=== PATIENT | female | born 1955 | race Caucasian/White ===

== ENCOUNTER 2020-10-19 11:05 | Outpatient (CLI) | payer MEDICARE, SELFPAY ==
[2020-10-19 11:15] LABS: Basophils Absolute Auto 0.03 K/mm3 (0.00-0.10); Basophils Percent Auto 0.3 % (0.0-1.0); Eosinophils Absolute Auto 0.09 K/mm3 (0.02-0.50); Eosinophils Percent Auto 0.8 % (1.0-6.0); Hematocrit 42.8 % (35.0-42.0); Hemoglobin 14.8 g/dL (11.7-13.8); Immature Granulocyte Absolute 0.05 K/mm3 (0.00-0.00); Immature Granulocyte Percent A 0.4 % (0.0-0.0); Lymphocytes Percent Auto 24.1 % (18.0-42.0); Mean Corpuscular HGB Conc 34.6 g/dL (32.0-36.0); Mean Corpuscular Volume 92.4 fL (78.0-102.0); Mean Platelet Volume 10.2 fl (9.2-11.8); Monocytes Absolute Auto 0.74 K/mm3 (0.10-0.90); Monocytes Percent Auto 6.6 % (2.0-11.0); Neutrophils Absolute Auto 7.6 K/mm3 (1.7-7.2); Neutrophils Percent Auto 67.8 % (50.0-70.0); Platelet Count Result 319 K/mm3 (150-420); Red Blood Count 4.63 M/mm3 (4.20-5.40); Red Cell Distribution Width 11.8 % (11.6-14.4); White Blood Count 11.2 K/mm3 (4.8-10.8)
[2020-10-19 12:28] LABS: Alanine Aminotransferase 34 U/L (14-59); Albumin Level 4.5 g/dL (3.4-5.0); Alkaline Phosphatase 124 U/L (46-116); Anion Gap 9 mmol/L (8-16); Aspartate Amino Transferase 23 U/L (15-37); Bilirubin,Total 2.4 mg/dL (0.00-1.00); Blood Urea Nitrogen 13 mg/dL (7-18); Calcium 9.9 mg/dL (8.5-10.1); Carbon Dioxide 32 mmol/L (21-32); Chloride 99 mmol/L (98-108); Cholesterol 175 mg/dL (0-200); Estimated Glomerular Filt Rate > 60; Glucose 90 mg/dL (70-99); HDL Direct 60 mg/dL (40-60); LDL Cholesterol Calculated 84 mg/dL (<130); Osmolality Calculated 290 mOsm/kg (285-295); Potassium 3.9 mmol/L (3.5-5.1); Sodium 140 mmol/L (136-145); Total Protein 7.4 g/dL (6.4-8.2); Triglycerides 155 mg/dL (0-150)
== END 2020-10-19 11:06 | disposition home or self-care (01) ==
LOC: CHSLAB 11:08
PROVIDERS: PCP Nurse Practitioner Family; Visit Provider Nurse Practitioner Family
DX: E78.5 Hyperlipidemia, unspecified (principal); I10 Essential (primary) hypertension
CPT/HCPCS: 36415; 80053; 80061; 85025

== ENCOUNTER 2021-11-14 11:47 | Outpatient (CLI) | payer MEDICARE, SELFPAY ==
[2021-11-14 12:04] LABS: Basophils Absolute Auto 0.04 K/mm3 (0.00-0.10); Basophils Percent Auto 0.4 % (0.0-1.0); Eosinophils Absolute Auto 0.06 K/mm3 (0.02-0.50); Eosinophils Percent Auto 0.6 % (1.0-6.0); Hematocrit 43.2 % (35.0-42.0); Hemoglobin 14.7 g/dL (11.7-13.8); Immature Granulocyte Absolute 0.04 K/mm3 (0.00-0.00); Immature Granulocyte Percent A 0.4 % (0.0-0.0); Lymphocytes Absolute Auto 2.62 K/mm3 (1.10-4.50); Lymphocytes Percent Auto 25.7 % (18.0-42.0); Mean Corpuscular Hemoglobin 31.8 pg (27.0-31.0); Mean Corpuscular Volume 93.5 fL (78.0-102.0); Mean Platelet Volume 10.6 fl (9.2-11.8); Monocytes Absolute Auto 0.52 K/mm3 (0.10-0.90); Monocytes Percent Auto 5.1 % (2.0-11.0); Neutrophils Absolute Auto 6.9 K/mm3 (1.7-7.2); Neutrophils Percent Auto 67.8 % (50.0-70.0); Platelet Count Result 289 K/mm3 (150-420); Red Blood Count 4.62 M/mm3 (4.20-5.40); Red Cell Distribution Width 12.1 % (11.6-14.4); White Blood Count 10.2 K/mm3 (4.8-10.8)
[2021-11-14 13:10] LABS: Alanine Aminotransferase 24 U/L (14-59); Albumin Level 4.5 g/dL (3.4-5.0); Alkaline Phosphatase 114 U/L (46-116); Anion Gap 8 mmol/L (8-16); Aspartate Amino Transferase 18 U/L (15-37); Bilirubin,Total 1.7 mg/dL (0.00-1.00); Blood Urea Nitrogen 10 mg/dL (7-18); Calcium 9.8 mg/dL (8.5-10.1); Carbon Dioxide 31 mmol/L (21-32); Chloride 97 mmol/L (98-108); Cholesterol 155 mg/dL (0-200); Estimated Glomerular Filt Rate > 60; Glucose 91 mg/dL (70-99); HDL Direct 72 mg/dL (40-60); LDL Cholesterol Calculated 56 mg/dL (<130); Osmolality Calculated 281 mOsm/kg (285-295); Potassium 3.8 mmol/L (3.5-5.1); Sodium 136 mmol/L (136-145); Total Protein 7.2 g/dL (6.4-8.2); Triglycerides 133 mg/dL (0-150)
== END 2021-11-14 11:48 | disposition home or self-care (01) ==
LOC: CHSLAB 11:50
PROVIDERS: PCP Nurse Practitioner Family; Visit Provider Nurse Practitioner Family
DX: E78.5 Hyperlipidemia, unspecified (principal); I10 Essential (primary) hypertension
CPT/HCPCS: 36415; 80053; 80061; 85025

== ENCOUNTER 2023-10-11 11:25 | Outpatient (CLI) | payer MEDICARE, SELFPAY ==
[2023-10-11 11:37] LABS: Basophils Absolute Auto 0.05 K/mm3 (0.00-0.10); Basophils Percent Auto 0.4 % (0.0-1.0); Eosinophils Absolute Auto 0.07 K/mm3 (0.02-0.50); Eosinophils Percent Auto 0.6 % (1.0-6.0); Hematocrit 43.1 % (35.0-42.0); Hemoglobin 14.6 g/dL (11.7-13.8); Immature Granulocyte Absolute 0.06 K/mm3 (0.00-0.00); Immature Granulocyte Percent A 0.5 % (0.0-0.0); Lymphocytes Absolute Auto 3.01 K/mm3 (1.10-4.50); Lymphocytes Percent Auto 26.3 % (18.0-42.0); Mean Corpuscular HGB Conc 33.9 g/dL (32.0-36.0); Mean Corpuscular Hemoglobin 31.2 pg (27.0-31.0); Mean Corpuscular Volume 92.1 fL (78.0-102.0); Mean Platelet Volume 9.9 fl (9.2-11.8); Monocytes Absolute Auto 0.49 K/mm3 (0.10-0.90); Monocytes Percent Auto 4.3 % (2.0-11.0); Neutrophils Absolute Auto 7.8 K/mm3 (1.7-7.2); Neutrophils Percent Auto 67.9 % (50.0-70.0); Platelet Count Result 318 K/mm3 (150-420); Red Blood Count 4.68 M/mm3 (4.20-5.40); White Blood Count 11.4 K/mm3 (4.8-10.8)
[2023-10-11 12:40] LABS: Alanine Aminotransferase 29 U/L (14-59); Albumin Level 4.1 g/dL (3.4-5.0); Alkaline Phosphatase 106 U/L (46-116); Anion Gap 9 mmol/L (8-16); Aspartate Amino Transferase 23 U/L (15-37); Bilirubin,Total 1.8 mg/dL (0.00-1.00); Blood Urea Nitrogen 7 mg/dL (7-18); Calcium 9.7 mg/dL (8.5-10.1); Carbon Dioxide 31 mmol/L (21-32); Chloride 98 mmol/L (98-108); Cholesterol 260 mg/dL (0-200); Estimated Glomerular Filt Rate > 60; Glucose 98 mg/dL (70-99); HDL Direct 63 mg/dL (40-60); LDL Cholesterol Calculated 158 mg/dL (<130); Osmolality Calculated 284 mOsm/kg (285-295); Potassium 4.3 mmol/L (3.5-5.1); Sodium 138 mmol/L (136-145); Total Protein 7.1 g/dL (6.4-8.2); Triglycerides 194 mg/dL (0-150)
== END 2023-10-11 11:26 | disposition home or self-care (01) ==
LOC: CHSLAB 11:28
PROVIDERS: PCP Nurse Practitioner Family; Visit Provider Nurse Practitioner Family
DX: Z13.6 Encounter for screening for cardiovascular disorders (principal); E78.5 Hyperlipidemia, unspecified; I10 Essential (primary) hypertension
CPT/HCPCS: 36415; 80053; 80061; 85025

== ENCOUNTER 2023-11-27 08:12 | Outpatient (CLI) | payer MEDICARE, SELFPAY ==
--- NOTE | ~2023-11-27 | DEXA_ITS ---
? Bone Density Report? Name:? WHITNEY HUFFMAN Patient ID:??? [id number] Age:? 68 Sex:? Female Ethnicity:? White Date of : 1955 Indication: postmenopausal; screening for osteoporosis; hysterectomy; Referring Provider: Rachael Patel Study: Bone densitometry was performed. Exam Date: November 27, 2023 Accession number: Bone Density: Region? BMD??? T-score? Z-score?? Classification AP Spine(L1-L4)? 0.816?? -2.1? -0.1? Osteopenia Femoral Neck (Left)? 0.682?? -1.5? 0.2? Osteopenia Total Hip (Left)? 0.812?? -1.1? 0.3? Osteopenia Femoral Neck (Right)? 0.707?? -1.3? 0.4? Osteopenia Total Hip (Right)? 0.809?? -1.1? 0.3? Osteopenia Femoral Neck Mean? 0.694?? -1.4? 0.3? Osteopenia Total Hip Mean? 0.810?? -1.1? 0.3? Osteopenia World Health Organization criteria for BMD impression classify patients as: Normal (T-score at or above -1.0), Osteopenia (T-score between -1.0 and -2.5), or Osteoporosis (T-score at or below -2.5). 10-year Fracture Risk(1): Major Osteoporotic Fracture? 9.5% Hip Fracture? 2.1% Reported Risk Factors: [place] (), Neck BMD=0.682, BMI=23.0, smoking (1) FRAX? Version 3.08. Fracture probability calculated for an untreated patient. Fracture probability may be lower if the patient has received treatment. Clinical Information Provided by Patient: Smokes Has used the following medications: Vitamin D Has the following medical conditions: Hysterectomy Patient maximum height was 65.0 Menopause Age: 48 No regular weight bearing exercise Does not regularly consume dairy products Drinks caffeinated beverages Onset of menses at age 12 Number of children 3 Impression: The patient has low bone mass, based on the Total Spine T-score. The patient has risk factors, including: smoking. Discussion: BONE DENSITY IS LOW AT ONE OR MORE SKELETAL SITES. This patient's lowest T-score is low at one or more skeletal sites.? It meets the World Health Organization's (WHO) criteria for ?low bone mass?? (T-score between -1.0 and -2.5).? The patient's 10-year risk of fracture as calculated by FRAX is less than the threshold where pharmacological therapy is recommended by the National Osteoporosis Foundation (NOF).? However, all treatment decisions require clinical judgment and consideration of individual patient factors, including patient preferences, comorbidities, previous drug use, risk factors not captured in the FRAX model (e.g., frailty, falls, vitamin D deficiency, increased bone turnover, interval significant decline in bone density) and possible under or overestimation of fracture risk by FRAX. The patient should follow a healthful lifestyle (good nutrition with adequate calcium and vitamin D, and appropriate weight-bearing exercise). Follow-Up: Consider repeating this study in 2 to 3 years to reassess this patient's status, or sooner if there is some new clinical indica
== END 2023-11-27 08:13 | disposition home or self-care (01) ==
LOC: CHSIMG 08:14
PROVIDERS: PCP Nurse Practitioner Family; Visit Provider Nurse Practitioner Family
DX: Z78.0 Asymptomatic menopausal state (principal); M85.89 Other specified disorders of bone density and structure, multiple sites
CPT/HCPCS: 77080

== ENCOUNTER 2024-10-15 11:02 | Outpatient (CLI) | payer MEDICARE, SELFPAY ==
--- OUTSIDE RECORDS SUMMARY | 2024-10-15 11:09 | XMS_ITS | Patient Health Summary ---
Author Organization [facility] Address [address] [place] [address] Care Team Providers Care Bone Plant Supervisor Name Role Phone Antonino Petersen MD Primary Care Provider [phone] Note from [facility],non-owned Affiliates and Associated Physician Practices is amultiple site organization consisting of ambulatory clinics and hospital sitesin [place], [place], [place] and [place]. This disclosure is being madepursuant to the Care Everywhere program and may not contain all information available regarding this patient. Last updated 18.[facility] Allergies * Erythromycin * Sulfa Drugs(Rash) -Medium Criticality Medications * Be aware that medications may not be up to date on this document. Alwaysverify current medications with the patient. * aspirin (ASPIRIN) 325 MG tablet Take 325 mg by mouth once daily * Vitamin D3 (CHOLECALCIFEROL) 2000 UNITS capsule Take 2,000 Units by mouth once daily * quinapril 5 MG TABS 10 mg, hydroCHLOROthiazide 25 MG TABS 12.5 mg Take by mouth once daily * atenolol (TENORMIN) 50 MG tablet Take 50 mg by mouth once daily * exemestane (AROMASIN) 25 MG tablet Take 25 mg by mouth once daily * atorvastatin (LIPITOR) 10 MG tablet Take 10 mg by mouth at bedtime * predniSONE (DELTASONE) 10 MG tablet(Started 01/11/2017) 5 tabs PO x 1 day, 4 tabs PO x 1 day, 3 tabs PO x 1 day, 2 tabs PO x 1 day, 1 tab PO x 1 day Social History Tobacco Use Types Packs/Day Years Used Date Smoking Tobacco: Every Day Smokeless Tobacco: Never Sex and Gender Information Value Date Recorded Sex Assigned at Not on file Gender Identity Not on file Sexual Orientation Not on file Last Filed Vital Signs Vital Sign Reading Time Taken Comments Blood Pressure 166/90 12/04/2018 12:47 PM CDT Pulse 61 12/04/2018 12:47 PM CDT Temperature 36.7 C (98 F) 12/04/2018 12:47 PM CDT Respiratory Rate 16 12/04/2018 12:47 PM CDT Oxygen Saturation 98% 12/04/2018 12:47 PM CDT Inhaled Oxygen Concentration - - Weight 62.1 kg (137 lb) 12/04/2018 12:47 PM CDT Height 165.1 cm (5' 5 ) 12/04/2018 12:47 PM CDT Body Mass Index 22.8 12/04/2018 12:47 PM CDT Care Teams Bone Plant Supervisor Relationship Specialty Start Date End Date Antonino Petersen MD [address] [place] [address] PCP - General Family Medicine 01/11/17
--- OUTSIDE RECORDS SUMMARY | 2024-10-15 11:09 | XMS_ITS | Referral Summary ---
Author Organization [facility] Address [address] [place] [address] Care Team Providers Care Consulting Hr Professional Name Role Phone Antonino Petersen MD Primary Care Provider [phone] Source Comments [facility],non-owned Affiliates and Associated Physician Practices is amultiple site organization consisting of ambulatory clinics and hospital sitesin [place], [place], [place] and [place]. This disclosure is being madepursuant to the Care Everywhere program and may not contain all information available regarding this patient. Last updated 18.[facility] Allergies Active Allergy Reactions Criticality Noted Date Comments Erythromycin 01/11/2017 Sulfa Drugs Rash Medium 12/04/2018 Medications * Be aware that medications may not be up to date on this document. Alwaysverify current medications with the patient. Medication Sig Dispensed Refills Start Date End Date Status aspirin (ASPIRIN) 325 MG tablet Take 325 mg by mouth once daily Active Vitamin D3 (CHOLECALCIFEROL) 2000 UNITS capsule Take 2,000 Units by mouth once daily Active quinapril 5 MG TABS 10 mg, hydroCHLOROthiazide 25 MG TABS 12.5 mg Take by mouth once daily Active atenolol (TENORMIN) 50 MG tablet Take 50 mg by mouth once daily Active exemestane (AROMASIN) 25 MG tablet Take 25 mg by mouth once daily Active atorvastatin (LIPITOR) 10 MG tablet Take 10 mg by mouth at bedtime Active predniSONE (DELTASONE) 10 MG tablet 5 tabs PO x 1 day, 4 tabs PO x 1 day, 3 tabs PO x 1 day, 2 tabs PO x 1 day, 1 tab PO x 1 day 15 Tab 01/11/2017 Active Additional Information Patient not taking.Reported on 12/04/2018 Social History Tobacco Use Types Packs/Day Years [...] Mass Index 22.8 12/04/2018 12:47 PM CDT Plan of Treatment Not on file Care Teams Consulting Hr Professional Relationship Specialty Start Date End Date Antonino Petersen MD [address] [place] [address] PCP - General Family Medicine 01/11/17
--- OUTSIDE RECORDS SUMMARY | 2024-10-15 11:09 | XMS_ITS | Clinical Summary ---
Author Organization [facility] Address [address] [place] [address] Phone Care Team Providers Care Business Development Consultant Name Role Phone [facility], External Provider Primary Care Provider U navailable Allergies Active Allergy Reactions Criticality Noted Date Comments Erythromycin Rash Low 10/24/2013 Sulfa (Sulfonamide Antibiotics) Rash High 03/28 Medications aspirin buffered (BUFFERIN) 325 mg tabletIndication s:Breast cancer screening, high risk patient,Atypical hyperplasia of breast Take 1 Tab by mouth daily. Active ergocalciferol (VITAMIN D2) 50,000 unit capsule Take 1 Cap by mouth every 7 days. 12 Cap 0 5 Active Additional Information Patient taking differently: 2,000 UnitsOralDAILY, Reported on 03/16/2022 atorvastatin (LIPITOR) 10 mg tablet Take 20 mg by mouth late in the day. Active atenolol (TENORMIN) 50 mg tabletIndication s:Atypical hyperplasia of breast,Breast cancer screening, high risk patient,Family history of malignant neoplasm of breast TK 1 T PO QD 3 7 Active quinapril-hydroC HLOROthiazide (ACCURETIC) 20-12.5 mg TabletIndication s:Atypical hyperplasia of breast,Breast cancer screening, high risk patient,Family history of malignant neoplasm of breast TK 2 TS PO QD 1 7 Active aspirin (ZARIA CHEWABLE) 81 mg Tablet, Chewable Take 81 mg by mouth daily. Active amLODIPine (NORVASC) 5 mg tablet Take 5 mg by mouth daily. Active lisinopril-hydro CHLOROthiazide (ZESTORETIC) 20-12.5 mg tablet Take 2 Tablets by mouth daily. Active Active Problems Patient Care Coordination No te Formatting of this note migh t be different from the original. 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 Breast cancer screening, high risk patient 12/09 Family history of malignant neoplasm of breast 0 12/01/2013 HTN (hypertension) Resolved Problems Problem Noted Date Diagnosed Date Resolved Date Fibrocystic disease of breas t, proliferative type with atypia 12/01/2013 12/09/2013 Inflammatory disease of breast 12/01/2013 12/09/2013 Mammographic microcalcification 10/21/2013 12/09/2013 Encounters Date Type Department Care Team Description 09/17/2024 External Device Data [facility] ABSTRACTION Provider, Abstract 09/17/2024 External Device Data [facility] ABSTRACTION Provider, Abstract 09/10/2024 External Device Data [facility] ABSTRACTION Provider, Abstract from Last 3 Months Family History Medical History Relation Name Comments Breast Cancer Maternal Aunt Breast Cancer Mother Yudi Breast Cancer Other 1 MGAunt Breast Cancer Other 2 Niece Triple (-); BR CA (-) Ovarian Cancer Neg Hx Relation Name Status Comments Maternal Aunt Mother Yudi Other 1 MGAunt Other 2 Niece Alive Social History Tobacco Use Types Packs/Day Years Used Date Smoking Tobacco: Former Cigarettes Smokeless Tobacco: Never Tobacco Cessation:Counseling Given: Not Answered Comments:Quit 8-10 wks ago Alcohol Use Standard Drinks/Week Comments Yes 0.8 (1 standard drink = 0.6 oz p ure alcohol) rare - wine Feeling Safe Answer Date Recorded Fear of Current or Ex-Partner Not on file Emotionally Abused Not on file 04/30/2024 Within the last year, have y ou been kicked, hit, slapped, or otherwise physically hurt by your partner or ex-partner? No 04/30/2024 Sexually Abused Not on file 04/30/2024 Comments No Sex and Gender Information Value Date Recorded Sex Assigned at Not on file Legal Sex Female 8:19 AM FLAME CUTTER Gender Identity Not on file Sexual Orientation Not on file Occupation Industry Job Start Date Job End Date Not on file Not on file Not on file Not on file Last Filed Vital Signs Vital Sign Reading Time Taken Comments Blood Pressure 136/72 04/30/2024 9:37 AM CDT Pulse 55 03/16/2022 8:19 AM CDT Temperature 36.6 C (97.9 F) 08/30/2020 11:19 AM FLAME CUTTER Respiratory Rate 16 04/19/2017 11:00 AM CDT Oxygen Saturation 98% 08/30/2020 11:19 AM FLAME CUTTER Inhaled Oxygen Concentration - - Weight 62.1 kg (137 lb) 04/30/2024 9:37 AM CDT Height 165.1 cm (5' 5 ) 04/30/2024 9:37 AM CDT Body Mass Index 22.8 04/30/2024 9:37 AM CDT Plan of Treatment Upcoming Encounters Date Type Department Care Team (Late st Contact Info) Description 05/01/2025 9:30 AM CDT Appointment [facility] [address] [place] [address] Jovita Bill, LEATHA [address] [place] [id number] 05/01/2025 10:30 AM CDT Office Visit [facility] [address] [place] [address] [place] [address] Jovita Bill, LEATHA [address] [place] [address] Health Maintenance Due Date Last Done Comments DTAP/TDAP/TD VACCINES (1 - Tdap) 1974 COLORECTAL SCREENING 2000 Colorectal Cancer Screening 2000 FIT-DNA Q 3 years 2000 FIT/FOBT Q 1 year 2000 Flex Sig/CT Colonography Q 5 years 2000 PNEUMOCOCCAL VACCINE 65+ YEA RS (1 of 1 - PCV) 2005 ZOSTER VACCINE (1 of 2) 2005 INFLUENZA VACCINE (#1) 2024 BREAST CANCER SCREENING 04/30/2025 04/30/20 24, 03/22/2023, 03/16/2022, Additional history exists RSV VACCINE (60+ or ) (1 - 1-dose 75+ series) 2030 OSTEOPOROSIS SCREENING Completed 9, 11/06/2016, 01/26/2014 Procedures Procedure Name Priority Date/Time Associated Diagnosis Comments MAMMO 3D LEIF SCREEN BILAT W OR WO CAD Routine 04/30/2024 9:26 AM CDT Family history of malignant neoplasm of breast Atypical hyperplasia of breast Visit for screening mammogram XR DEXA BONE DENSITY AXIAL 1 OR MORE SITES Routine 11/18/2018 10:23 AM CDT Osteoporosis screening Post-menopausal from Last 3 Months or Most Recently Relevant to Health Maintenance Results * MAMMO SCRN BILAT 3D LEIF W OR WO CAD (04/30/2024 9:26 AM CDT) Anatomical Region Laterality Modality Breast Bilateral Mammography 04/30/2024 9:27 AM CDT Impressions 04/30/2024 9:42 AM CDT IMPRESSION: No mammographic evidence of malignancy in the bilateral breasts. Routine screening mammography is recommended in one year. OVERALL FINAL ASSESSMENT: BI-RADS CATEGORY 2 - Benign findings DICTATION LOCATION: [facility] 04/30/2024 9:42 AM CDT EXAMINATION: BILATERAL SCREENING DIGITAL MAMMOGRAPHY WITH TOMOSYNTHESIS AND CAD DATE: 04/30/2024 9:26 AM HISTORY: Routine screening mammography. History of a benign right breast core needle biopsy and benign left breast surgical excisional biopsy. COMPARISON: Mammography with dates ranging from 03/22/2023 to 11/01/2015. TECHNIQUE: A bilateral screening mammogram was performed. Low-dose full-field digital breast tomosynthesis examination was performed with 2D and 3D acquisitions. Examination is read in conjunction with computer aided detection. BREAST COMPOSITION: There are scattered areas of fibroglandular density. FINDINGS: There is a biopsy clip in the right breast. There are stable post-operative findings in the left breast. There are no suspicious masses, suspicious calcifications, or other suspicious findings in either breast. There has been no suspicious interval change. Computer aided detection was used in the interpretation of this examination. Procedure Note Demarcus Lakhani MD - 04/30/2024 EXAMINATION: BILATERAL SCREENING DIGITAL MAMMOGRAPHY WITH TOMOSYNTHESIS AND CAD DATE: 04/30/2024 9:26 AM HISTORY: Routine screening mammography. History of a benign right breast core needle biopsy and benign left breast surgical excisional biopsy. COMPARISON: Mammography with dates ranging from 03/22/2023 to 11/01/2015. TECHNIQUE: A bilateral screening mammogram was performed. Low-dose full-field digital breast tomosynthesis examination was performed with 2D and 3D acquisitions. Examination is read in conjunction with computer aided detection. BREAST COMPOSITION: There are scattered areas of fibroglandular density. FINDINGS: There is a biopsy clip in the right breast. There are stable post-operative findings in the left breast. There are no suspicious masses, suspicious calcifications, or other suspicious findings in either breast. There has been no suspicious interval change. Computer aided detection was used in the interpretation of this examination. IMPRESSION: No mammographic evidence of malignancy in the bilateral breasts. Routine screening mammography is recommended in one year. OVERALL FINAL ASSESSMENT: BI-RADS CATEGORY 2 - Benign findings DICTATION LOCATION: [facility] us Nelsy Santiago MD MAMMO ORDERABLES Final Result * XR DEXA BONE DENSITY AXIAL 1 OR MORE SITES (11/18/2018 10:23 AM CDT) Anatomical Region Laterality Modality Computed Radiogr aphy 11/18/2018 10:2 3 AM CDT Impressions 11/18/2018 10:43 AM CDT IMPRESSION: This is a summary page. Please refer to the complete detailed report found in the Imaging Section of the [facility] EMR. Osteopenic BMD. Comments: None. Statistical change: No significant decrease in BMD since the prior exam. A statistically significant change is defined as a change of greater than 2.5 standard deviations in the least significant difference from the prior study. Least significant differences are defined as follows: Lumbar spine: +/- 0.010 g/cm2 Femoral neck: +/- 0.014 g/cm2 Forearm radius 33%: +/- 0.020 g/cm2 FRAX FRACTURE RISK ASSESSMENT: Risk factors: Current smoker. 10 Year Probability Of Fracture Major Osteoporotic: 8.1 % Hip: 1.2 % Comparison population: [place], Race: A major osteoporotic fracture is defined as a fracture of the spine, forearm, hip or shoulder. Definitions: Normal: T-score above -1.0 Osteopenia T-score less than -1.0 and above -2.5 Osteoporosis: T-score <= -2.5 Follow-up Recommendations: Patients without high risk factors for osteoporosis T-score -1.0 to -1.5 - Consider repeat BMD in 5-10 years T-score -1.5 to - 2.0 - Consider repeat BMD in 3-5 years T-score -2.0 to - 2.5 - Consider repeat BMD every 2 years Patients on treatment for osteoporosis 1-2 years after initiation of treatment and every 2 years thereafter DICTATION LOCATION: Location 1 - [facility] 11/18/2018 10:43 AM CDT EXAMINATION: BONE DENSITY STUDY (DXA) DATE: 11/18/2018 10:23 AM HISTORY: 63 years Female. Post-menopausal symptoms. PROCEDURE: Planar images of the lumbar spine and hip(s) using a [employer] DEXA scanner for bone mineral density determination (BMD). Prior bone density: 11/06/2016 FINDINGS: Lumbar Spine (L1-L4): 1.039 g/sq cm T-Score: -1.2 Prior: 1.089 g/sq cm Left Femoral Neck: 0.841 g/sq cm T-Score: -1.4 Prior: 0.851 g/sq cm Left Total Femur: T-Score: -0.8 Right Femoral Neck: 0.86 g/sq cm T-Score: -1.3 Prior: 0.83 g/sq cm Right Total Femur: T-Score: -0.4 Procedure Note Rob Camp MD - 11/18/2018 EXAMINATION: BONE DENSITY STUDY (DXA) DATE: 11/18/2018 10:23 AM HISTORY: 63 years Female. Post-menopausal symptoms. PROCEDURE: Planar images of the lumbar spine and hip(s) using a [employer] DEXA scanner for bone mineral density determination (BMD). Prior bone density: 11/06/2016 FINDINGS: Lumbar Spine (L1-L4): 1.039 g/sq cm T-Score: -1.2 Prior: 1.089 g/sq cm Left Femoral Neck: 0.841 g/sq cm T-Score: -1.4 Prior: 0.851 g/sq cm Left Total Femur: T-Score: -0.8 Right Femoral Neck: 0.86 g/sq cm T-Score: -1.3 Prior: 0.83 g/sq cm Right Total Femur: T-Score: -0.4 IMPRESSION: This is a summary page. Please refer to the complete detailed report found in the Imaging Section of the [facility] EMR. Osteopenic BMD. Comments: None. Statistical change: No significant decrease in BMD since the prior exam. A statistically significant change is defined as a change of greater than 2.5 standard deviations in the least significant difference from the prior study. Least significant differences are defined as follows: Lumbar spine: +/- 0.010 g/cm2 Femoral neck: +/- 0.014 g/cm2 Forearm radius 33%: +/- 0.020 g/cm2 FRAX FRACTURE RISK ASSESSMENT: Risk factors: Current smoker. 10 Year Probability Of Fracture Major Osteoporotic: 8.1 % Hip: 1.2 % Comparison population: [place], Race: A major osteoporotic fracture is defined as a fracture of the spine, forearm, hip or shoulder. Definitions: Normal: T-score above -1.0 Osteopenia T-score less than -1.0 and above -2.5 Osteoporosis: T-score <= -2.5 Follow-up Recommendations: Patients without high risk factors for osteoporosis T-score -1.0 to -1.5 - Consider repeat BMD in 5-10 years T-score -1.5 to - 2.0 - Consider repeat BMD in 3-5 years T-score -2.0 to - 2.5 - Consider repeat BMD every 2 years Patients on treatment for osteoporosis 1-2 years after initiation of treatment and every 2 years thereafter DICTATION LOCATION: Location 1 - [facility] Chuckie Marquez MD DIAGNOSTIC IMAGING ORDERABLES Final Result from Last 3 Months or Most Recently Relevant to Health Maintenance Insurance [facility] [id number] Advance Directives For more information, please contact: [phone] * Full Code (Latest Code Status on File) Date Activated Date Inactivated Comments 11/20/2013 8:07 AM 11/20/2013 1:49 PM * Full Code Date Activated Date Inactivated Comments 11/20/2013 7:51 AM 11/20/2013 8:07 AM Care Teams Business Development Consultant Relationship Specialty Start Date End Date [facility], External Provider [address] [place] [address] PCP - General 02/24/20
--- OUTSIDE RECORDS SUMMARY | 2024-10-15 11:09 | XMS_ITS | Referral Summary ---
Author Organization [facility] Address [address] [place] [address] Phone Care Team Providers Care Multifocal Lens Inspector Name Role Phone Landry Downey NP Primary Care Provi geoffrey Chuckie Marquez MD Unavailable [phone] Serenity Fried MD Unavailable [phone] Encounters Date Type Department Care Team Description 10/02/2024 Telephone [facility] Accountable Care Organization [address] [place] [address] Raquel Putnam MA Unsuccessful Phone Call 1 ([facility] AWV) from Last 3 Months Allergies Active Allergy Reactions Criticality Noted Date Comments Erythromycin Rash Medium 01/11/2017 Sulfa (Sulfonamide Antibiotics) Rash Medium 08/27 Medications exemestane (AROMASIN) 25 mg tablet 09/05/2017 Active cholecalciferol (VITAMIN D-3) 2,000 unit capsule Take 2,000 Units by mouth. Active atenolol (TENORMIN) 50 mg tablet TAKE 1 TABLET BY MOUTH EVERY DAY 30 tablet 11 10/09/2017 Active aspirin 81 mg chewable tablet Take 1 tablet (81 mg total) by mouth daily. 30 tablet 11 01/30/2018 Active atorvastatin (LIPITOR) 10 mg tablet TAKE 1 TABLET BY MOUTH EVERY DAY 90 tablet 2 06/03/2018 Active amLODIPine (NORVASC) 5 mg tablet TAKE 1 TABLET BY MOUTH EVERY DAY 90 tablet 1 08/01/2018 Active quinapril-hydro chlorothiazide (ACCURETIC) 20-12.5 mg per tablet TAKE 2 TABLETS BY MOUTH EVERY DAY 180 tablet 03/31/2019 Active Active Problems Problem Noted Date Diagnosed Date Osteopenia 01/30/2018 Hypertension 09/10/2017 Assessment & Plan (09/10/2017 9:37 AM NEWS CAMERA PERSON): Hypertension is well controlled. . Continue current treatment regimen. Dietary sodium restriction. Regular aerobic exercise. Blood pressure will be reassessed at the next regular appointment. Hyperlipidemia 09/10/2017 Assessment & Plan (09/10/2017 9:38 AM NEWS CAMERA PERSON): Lipid abnormalities are controlled in past with statin. . Pharmacotherapy as ordered. Lipids will be reassessed in 3 months. Vitamin D deficiency 09/10/2017 Assessment & Plan (09/10/2017 9:38 AM NEWS CAMERA PERSON): Plan to check Vitamin D level. Abnormal cells in breast 09/10/2017 Assessment & Plan (09/10/2017 9:40 AM NEWS CAMERA PERSON): Currently following at [facility]. Alternating every 6 months with MRI vs mammogram. Currently on aromasin. Resolved Problems Problem Noted Date Diagnosed Date Resolved Date BMI 22.0-22.9, adult 09/10/2017 06/01/26 018 Assessment & Plan (09/10/2017 9:41 AM NEWS CAMERA PERSON): BMI normal. Weight has been stable. Aware of importance of healthy proper caloric intake. 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 Not on file Not on file Last Filed Vital Signs Vital Sign Reading Time Taken Comments Blood Pressure 160/110 01/30/2018 4:09 PM CDT Pulse 62 01/30/2018 4:09 PM CDT Temperature 36.9 C (98.5 F) 01/30/2018 4:09 PM CDT Respiratory Rate - - Oxygen Saturation 100% 01/30/2018 4:09 PM CDT Inhaled Oxygen Concentration - - Weight 63.2 kg (139 lb 6.4 oz) 01/30/2018 4:09 P M CDT Height 162.6 cm (5' 4 ) 01/30/2018 4:09 PM CDT Body Mass Index 23.93 01/30/2018 4:09 PM CDT Plan of Treatment Not on file Insurance [employer] ACCESS Care Teams Multifocal Lens Inspector Relationship Specialty Start Date End Date Landry Downey NP PCP - General Family Practice 01/30/18 Chuckie Marquez MD Referring Physician Hematology 01/30/18 [place] [address] [address] Consulting Physician General Surgery 01/30/18
--- OUTSIDE RECORDS SUMMARY | 2024-10-15 11:09 | XMS_ITS | Clinical Summary ---
Author Organization [facility] Address [facility] [place] [address] Care Team Providers Care Gusset Ripper Name Role Phone Antonino Petersen MD Primary Care Provider [phone] Source Comments [facility],non-owned Affiliates and Associated Physician Practices is amultiple site organization consisting of ambulatory clinics and hospital sitesin [place], [place], [place] and [place]. This disclosure is being madepursuant to the Care Everywhere program and may not contain all information available regarding this patient. Last updated 18.[facility] Allergies Active Allergy Reactions Criticality Noted Date [...] Additional Information Patient not taking.Reported on 12/04/2018 Family History Medical History Relation Name Comments Hypertension Father Hypertension Mother Relation Name Status Comments Father Mother Social History Tobacco Use Types Packs/Day Years [...] 12/04/2018 12:47 PM CDT Plan of Treatment Health Maintenance Due Date Last Done Comments BONE DENSITY TESTING 1955 COLOGUARD (AGES 45-75) - COL ON CA SCREENING 1955 COLON MONITORING 1955 COLONOSCOPY - COLON CA SCREENING 1955 CT COLONOGRAPHY - COLON CA SCREENING 1955 Colorectal Cancer Screening 1955 FIT - COLON CA SCREENING 1955 FLEX SIG - COLON CA SCREENING 1955 MAMMOGRAM 1955 HEPATITIS C SCREENING 07/13/1973 DTAP/TDAP/TD VACCINES (1 - Tdap) 1974 PNEUMOCOCCAL VACCINE 50+ (1 of 2 - PCV) 1974 ZOSTER VACCINE (1 of 2) 2005 COVID-19 VACCINE ( - 2023-2 5 season) 2024 INFLUENZA VACCINE (#1) 2024 DEPRESSION SCREENING 08/27/2024 Respiratory Syncytial Virus (RSV) Vaccine Pt: or over 60 yrs (1 - 1-dose 75+ series) 2030 HEPATITIS B VACCINE Aged Out No longe r eligible based on patient's age to complete this topic HIB VACCINE Aged Out No longer eligi ble based on patient's age to complete this topic HPV VACCINE Aged Out No longer eligi ble based on patient's age to complete this topic MENINGOCOCCAL (Group B) VACCINE Aged Out No longer eligible based on patient's age to complete this topic MENINGOCOCCAL VACCINE Aged Out No sam luiza eligible based on patient's age to complete this topic Care Teams Gusset Ripper Relationship Specialty Start Date End Date Antonino Petersen MD [address] [place] [address] PCP - General Family Medicine 01/11/17
--- OUTSIDE RECORDS SUMMARY | 2024-10-15 11:09 | XMS_ITS | Clinical Summary ---
Author Organization [facility] Address [address] [place] [address] Phone Care Team Providers Care Human Resources Clerk Name Role Phone Nasreen Landry García NP Primary Care Provi geoffrey Chuckie Marquez MD Unavailable Serenity Fried MD Unavailable [phone] Allergies Active Allergy Reactions Criticality Noted Date [...] 09/10/2017 Assessment & Plan (09/10/2017 9:37 AM SEALING MACHINE OPERATOR): Hypertension is well controlled. . Continue current treatment regimen. Dietary sodium restriction. Regular aerobic exercise. Blood pressure will be reassessed at the next regular appointment. Hyperlipidemia 09/10/2017 Assessment & Plan (09/10/2017 9:38 AM SEALING MACHINE OPERATOR): Lipid abnormalities are controlled in past with statin. . Pharmacotherapy as ordered. Lipids will be reassessed in 3 months. Vitamin D deficiency 09/10/2017 Assessment & Plan (09/10/2017 9:38 AM SEALING MACHINE OPERATOR): Plan to check Vitamin D level. Abnormal cells in breast 09/10/2017 Assessment & Plan (09/10/2017 9:40 AM SEALING MACHINE OPERATOR): Currently following at [facility]. Alternating every 6 months with MRI vs mammogram. Currently on aromasin. Resolved Problems Problem Noted Date Diagnosed Date Resolved Date BMI 22.0-22.9, adult 09/10/2017 06/06/ 018 Assessment & Plan (09/10/2017 9:41 AM SEALING MACHINE OPERATOR): BMI normal. Weight has been stable. Aware of importance of healthy proper caloric intake. Encounters Date Type Department Care Team Description 10/02/2024 Telephone [facility] Accountable Care Organization [address] [place], [place] [id number] Raquel Putnam MA Unsuccessful Phone Call 1 ([facility] AWV) from Last 3 Months Surgical History Surgery Date Site/Laterality Comments HYSTERECTOMY 08/27/2013 - 08/26/2014 Dysfunctional uterine bleeding. BREAST SURGERY 08/27/2013 - 08/26/2014 Left Atypical cells removed. On Estrogen Modulator Exemestane. Gets imaging done every 6 months. Medical History Medical History Date Comments Hypertension Hyperlipidemia Vitamin D deficiency Shingles Family History Medical History Relation Name Comments Cancer Father Emphysema Father Heart failure Father Hypertension Father Cancer Mother Hypertension Mother Diabetes Sister Meghana Relation Name Status Comments Father Mother Sister Meghana Alive Social History Tobacco Use Types Packs/Day [...] file Not on file Not on file Obstetrics History Para Term AB IAB SAB Ectopic Multiple Livin g Live Births 3 3 3 3 3 Date Outcome GA Total Labor Labor/2nd/3rd Weight Sex Type Anes PTL Daphne A1 A5 Name Clin Term 4.309 kg (9 lb 8 oz) M Vag-S pont Living Complications:Other (Comment ) Term 3.742 kg (8 lb 4 oz) F Vag-S pont Living Term 4.451 kg (9 lb 13 oz) M Vag-S pont None Living Comments First oldest child pt was pu t under an anesthetic called twlight that put her to sleep. Last Filed Vital Signs Vital Sign Reading [...] Plan of Treatment Not on file Insurance ZAHIRA PREFERRED ZARINAEM ACCESS Care Teams Human Resources Clerk Relationship Specialty Start Date End Date Landry Downey NP PCP - General Family Practice 01/30/18 Chuckie Marquez MD Referring Physician Hematology 01/30/18 [place] [address] [place] [address] Consulting Physician General Surgery 01/30/18
--- OUTSIDE RECORDS SUMMARY | 2024-10-15 11:09 | XMS_ITS | Encounter Summary ---
Author Organization [facility] Address [address] [place] [address] Care Team Providers Care Dimension Mill Worker Name Role Phone [facility], External Provider Primary Care Provider U navailable Reason for Visit * Reason Comments Medication Refill Encounter Details Date Type Department Care Team (Late st Contact Info) Description 07/17/2014 Refill [facility] Dami Leahy [address] [place] [address] Chuckie Marquez MD [address] [place] [address] Social History Tobacco Use Types Packs/Day Years Used Date Smoking Tobacco: Former Cigarettes Smokeless Tobacco: Never Comments:Quit 8-10 wks ago Alcohol Use Standard Drinks/Week Comments Yes 0.8 (1 standard drink = 0.6 oz p ure alcohol) rare - wine Comments No Sex and Gender Information Value Date Recorded Sex Assigned at Not on file Legal Sex Female 8:19 AM VETERINARY NURSE Gender Identity Not on file Sexual Orientation Not on file Occupation Industry Job Start Date Job End Date Not on file Not on file Not on file Not on file documented as of this encounter Miscellaneous Notes * Telephone Encounter - Shannan Brown RN - 07/17/2014 9:14 AM CST SCRIPT REFILLED for Aromasin RINARY NURSE documented in this encounter Plan of Treatment Upcoming Encounters Date Type Department Care Team (Late st Contact Info) Description 05/01/2025 9:30 AM CDT Appointment [facility] [address] [place] [address] Jovita Bill, LEATHA [address] [place] [address] 05/01/2025 10:30 AM CDT Office Visit [facility] Breast Surgery Damiadam Leahy [address] [place] [address] Jovita Bill, LEATHA [address] [place] [address] documented as of this encounter Visit Diagnoses Not on filedocumented in this encounter Care Teams Dimension Mill Worker Relationship Specialty Start Date End Date [facility], External Provider [address] [place] [address] PCP - General 02/24/20 documented as of this encounter
[2024-10-15 11:14] LABS: Basophils Absolute Auto 0.04 K/mm3 (0.00-0.10); Basophils Percent Auto 0.4 % (0.0-1.0); Eosinophils Absolute Auto 0.06 K/mm3 (0.02-0.50); Eosinophils Percent Auto 0.6 % (1.0-6.0); Hematocrit 43.7 % (35.0-42.0); Hemoglobin 14.6 g/dL (11.7-13.8); Immature Granulocyte Absolute 0.04 K/mm3 (0.00-0.00); Immature Granulocyte Percent A 0.4 % (0.0-0.0); Lymphocytes Absolute Auto 2.81 K/mm3 (1.10-4.50); Lymphocytes Percent Auto 27.2 % (18.0-42.0); Mean Corpuscular HGB Conc 33.4 g/dL (32-36); Mean Corpuscular Hemoglobin 30.7 pg (27.0-31.0); Mean Corpuscular Volume 91.8 fL (78.0-102.0); Mean Platelet Volume 10.4 fl (9.2-11.8); Monocytes Absolute Auto 0.53 K/mm3 (0.10-0.90); Monocytes Percent Auto 5.1 % (2.0-11.0); Neutrophils Absolute Auto 6.86 K/mm3 (1.70-7.20); Neutrophils Percent Auto 66.3 % (50.0-70.0); Platelet Count Result 302 K/mm3 (150-420); Red Blood Count 4.76 M/mm3 (4.20-5.40); Red Cell Distribution Width 11.9 % (11.6-14.4); White Blood Count 10.3 K/mm3 (4.8-10.8)
[2024-10-15 11:42] LABS: Alanine Aminotransferase 30 U/L (14-59); Albumin Level 4.4 g/dL (3.4-5.0); Alkaline Phosphatase 122 U/L (46-116); Anion Gap 8 mmol/L (4-12); Aspartate Amino Transferase 20 U/L (15-37); Bilirubin,Total 2.7 mg/dL (0.00-1.00); Blood Urea Nitrogen 9 mg/dL (7-18); Carbon Dioxide 32 mmol/L (21-32); Chloride 98 mmol/L (98-108); Cholesterol 155 mg/dL (0-200); Estimated Glomerular Filt Rate > 60; Glucose 103 mg/dL (70-99); HDL Direct 67 mg/dL (40-60); LDL Cholesterol Calculated 62 mg/dL (<130); Osmolality Calculated 284 mOsm/kg (285-295); Potassium 3.7 mmol/L (3.5-5.1); Sodium 138 mmol/L (136-145); Total Protein 7.4 g/dL (6.4-8.2); Triglycerides 128 mg/dL (0-150)
[2024-10-17 03:28] LABS: Vitamin D 25 Hydroxy 72 ng/mL (30-100)
== END 2024-10-15 11:03 | disposition home or self-care (01) ==
LOC: CHSLAB 11:04
PROVIDERS: PCP Nurse Practitioner Family; Visit Provider Nurse Practitioner Family
DX: Z13.6 Encounter for screening for cardiovascular disorders (principal); E78.5 Hyperlipidemia, unspecified; I10 Essential (primary) hypertension; Z79.899 Other long term (current) drug therapy
CPT/HCPCS: 36415; 80053; 80061; 82306; 85025

== ENCOUNTER 2024-11-13 16:20 | Outpatient (NON) | payer MEDICARE, SELFPAY ==
--- OUTSIDE RECORDS SUMMARY | 2024-11-13 16:24 | XMS_ITS | Clinical Summary ---
Author Organization [facility] [address] Address [address] [place] [address] Phone Care Team Providers Care Seal Mixing Operator Name Role Phone [facility], External Provider Primary Care Provider U navailable [...] tablet Take 2 Tablets by mouth daily. 4 Active Active Problems Patient Care Coordination No te Formatting of this note migh t be different from the original. Primary Care: Antonino Petersen MD Referring Provider: Carola Benavidez MD [address] [facility] [address] [place] [address] Other: Problem Noted Date Diagnosed Date Atypical [...] Encounters Date Type Department Care Team Description 11/12/2024 External Device Data STL ABSTRACTION Provider, Abstract 11/01/2024 External Device Data STL ABSTRACTION Provider, Abstract 10/31/2024 External Device Data [facility] ABSTRACTION Provider, Abstract 10/29/2024 External Device Data [facility]L ABSTRACTION Provider, Abstract 10/28/2024 External Device Data [facility] ABSTRACTION Provider, Abstract 10/14/2024 External Device Data STL ABSTRACTION Provider, Abstract [...] on file Legal Sex Female 8:19 AM PILLOWCASE CUTTER Gender Identity Not on file Sexual Orientation Not on file Occupation Industry Job Start Date Job End Date Not on file Not on file Not on file Not on file Last Filed Vital Signs Vital Sign Reading Time Taken Comments Blood Pressure 136/72 04/30/2024 9:37 AM CDT Pulse 55 03/16/2022 8:19 AM CDT Temperature 36.6 C (97.9 F) 08/30/2020 11:19 AM PILLOWCASE CUTTER Respiratory Rate 16 04/19/2017 11:00 AM CDT Oxygen Saturation 98% 08/30/2020 11:19 AM PILLOWCASE CUTTER Inhaled Oxygen Concentration - - Weight 62.1 kg (137 lb) 04/30/2024 9:37 AM CDT Height 165.1 cm (5' 5 ) 04/30/2024 9:37 AM CDT Body Mass Index 22.8 04/30/2024 9:37 AM CDT Plan of Treatment Upcoming Encounters Date Type Department Care Team (Late st Contact Info) Description 05/01/2025 9:30 AM CDT Appointment [facility] Dami Leah[address] [place] [address] Jovita Bill FNP [address] [place] [address] 05/01/2025 10:30 AM CDT Office Visit [facility] Breast Surgery Dami Armond [address] [place] [address] Jovita Bill, LEATHA [address] [place] [address] Health Maintenance Due Date Last Done Comments DTAP/TDAP/TD VACCINES (1 - Tdap) 1974 COLORECTAL SCREENING 2000 Colorectal Cancer Screening 2000 FIT-DNA Q 3 years 2000 FIT/FOBT Q 1 year 2000 Flex Sig/CT Colonography Q 5 years 2000 PNEUMOCOCCAL VACCINE 50+ YEA RS (1 of 1 - PCV) [...] - Benign findings DICTATION LOCATION: [facility] Narrative 04/30/2024 9:42 AM CDT EXAMINATION: BILATERAL SCREENING [...] CATEGORY 2 - Benign findings DICTATION LOCATION: [facility] Nelsy Santiago MD MAMMO ORDERABLES Final Result * XR DEXA BONE DENSITY AXIAL 1 OR MORE SITES (11/18/2018 10:23 AM CDT) Anatomical Region Laterality Modality Computed Radiogr aphy 11/18/2018 10:2 3 AM CDT Impressions 11/18/2018 10:43 AM CDT IMPRESSION: This is a summary page. Please refer to the complete detailed report found in the Imaging Section of the [facility] EMR. Osteopenic BMD. Comments: None. Statistical [...] years thereafter DICTATION LOCATION: Location 1 - [facility] Narrative 11/18/2018 10:43 AM CDT EXAMINATION: BONE DENSITY STUDY (DXA) DATE: 11/18/2018 10:23 AM HISTORY: 63 years Female. Post-menopausal symptoms. PROCEDURE: Planar images of the lumbar spine and hip(s) using a iPipeline DEXA scanner for bone mineral density determination [...] the lumbar spine and hip(s) using a iPipeline DEXA scanner for bone mineral density determination [...] found in the Imaging Section of the [employer] EMR. Osteopenic BMD. Comments: None. Statistical change: [...] years thereafter DICTATION LOCATION: Location 1 - [facility] Chuckie Vernon Marquez MD DIAGNOSTIC IMAGING ORDERABLES Final Result from Last 3 Months or Most Recently Relevant to Health Maintenance Insurance [facility] [address] [address] Advance Directives For more information, please contact: [phone] * Full Code (Latest Code Status on File) Date Activated Date Inactivated Comments 11/20/2013 8:07 AM 11/20/2013 1:49 PM * Full Code Date Activated Date Inactivated Comments 11/20/2013 7:51 AM 11/20/2013 8:07 AM Care Teams Seal Mixing Operator Relationship Specialty Start Date End Date [facility], External [place] [address] [place] [address] PCP - General 02/24/20
--- OUTSIDE RECORDS SUMMARY | 2024-11-13 16:24 | XMS_ITS | Clinical Summary ---
Author Organization [facility] Address [address] [place] [address] Phone Care Team Providers Care Back Facer Name Role Phone Nasreen Landry García NP Primary Care Provi geoffrey Chuckie Marquez MD Unavailable Serenity Fried MD Unavailable [phone] Allergies Active Allergy Reactions Criticality Noted [...] 09/10/2017 Assessment & Plan (09/10/2017 9:37 AM CORRECTIONAL FACILITY NURSE): Hypertension is well controlled. . Continue current treatment regimen. Dietary sodium restriction. Regular aerobic exercise. Blood pressure will be reassessed at the next regular appointment. Hyperlipidemia 09/10/2017 Assessment & Plan (09/10/2017 9:38 AM CORRECTIONAL FACILITY NURSE): Lipid abnormalities are controlled in past with statin. . Pharmacotherapy as ordered. Lipids will be reassessed in 3 months. Vitamin D deficiency 09/10/2017 Assessment & Plan (09/10/2017 9:38 AM CORRECTIONAL FACILITY NURSE): Plan to check Vitamin D level. Abnormal cells in breast 09/10/2017 Assessment & Plan (09/10/2017 9:40 AM CORRECTIONAL FACILITY NURSE): Currently following at [facility]. Alternating every 6 months with MRI vs mammogram. Currently on aromasin. Resolved Problems Problem Noted Date Diagnosed Date Resolved Date BMI 22.0-22.9, adult 09/10/2017 06/06/ 018 Assessment & Plan (09/10/2017 9:41 AM CORRECTIONAL FACILITY NURSE): BMI normal. Weight has been stable. Aware of importance of healthy proper caloric intake. Encounters Date Type Department Care Team Description 10/02/2024 Telephone [facility] Accountable Care Organization [address] [place], [place] [id number] Raquel Putnam MA Unsuccessful Phone Call 1 ([facility]) from Last 3 Months Surgical History [...] Insurance ZAHIRA PREFERRED ZARINAEM ACCESS Care Teams Back Facer Relationship Specialty Start Date End Date Landry Downey NP PCP - General Family Practice 01/30/18 Chuckie Marquez MD Referring Physician Hematology 01/30/18 [place] [address] [place] [address] Consulting Physician General Surgery 01/30/18
--- OUTSIDE RECORDS SUMMARY | 2024-11-13 16:24 | XMS_ITS | Encounter Summary ---
Author Organization [facility] Address [address] [place] [address] Care Team Providers Care Back Padder Name Role Phone [facility], External Provider Primary Care Provider U navailable Reason for Visit * Reason Comments Medication Refill Encounter Details Date Type Department Care Team (Late st Contact Info) Description 07/17/2014 Refill [facility] Breast Med Onc Dami Leahy [address] [place] [address] Chuckie Marquez MD [address] [place] [address] Social History Tobacco Use Types Packs/Day Years Used Date Smoking Tobacco: Former Cigarettes Smokeless Tobacco: Never Comments:Quit 8-10 wks ago Alcohol Use Standard Drinks/Week Comments Yes 0.8 (1 standard drink = 0.6 oz p ure alcohol) rare - wine Comments No Sex and Gender Information Value Date Recorded Sex Assigned at Not on file Legal Sex Female 8:19 AM ANDROID FRAMEWORK DEVELOPER Gender Identity Not on file Sexual Orientation Not on file Occupation Industry Job Start Date Job End Date Not on file Not on file Not on file Not on file documented as of this encounter Miscellaneous Notes * Telephone Encounter - Shannan Brown RN - 07/17/2014 9:14 AM CST SCRIPT REFILLED for Aromasin OID FRAMEWORK DEVELOPER documented in this encounter Plan of Treatment Upcoming Encounters Date Type Department Care Team (Late st Contact Info) Description 05/01/2025 9:30 AM CDT Appointment [facility] [address] [place] [address] Jovita Bill, LEATHA [address] [place] [address] 05/01/2025 10:30 AM CDT Office Visit [facility] Breast Surgery Damiadam Leahy [address] [place] [address] Jovita Bill, LEATHA [address] [place] [address] documented as of this encounter Visit Diagnoses Not on filedocumented in this encounter Care Teams Back Padder Relationship Specialty Start Date End Date [facility], External Provider [address] [place] [address] PCP - General 02/24/20 documented as of this encounter
--- OUTSIDE RECORDS SUMMARY | 2024-11-13 16:24 | XMS_ITS | Encounter Summary ---
Author Organization [facility] Address [address] [place] [address] Care Team Providers Care Cane Flume Feeding Machine Operator Name Role Phone [facility], External Provider Primary Care Provider Richard aranda Encounter Details Date Type Department Care Team (Late st Contact Info) Description 11/12/2024 External Device Data STL ABSTRACTION Provider, Abstract NO ADDRESS ON FILE Social History Tobacco Use Types Packs/Day Years [...] on file Legal Sex Female 8:19 AM COPY CENTER SPECIALIST Gender Identity Not on file Sexual Orientation Not on file Occupation Industry Job Start Date Job End Date Not on file Not on file Not on file Not on file documented as of this encounter Plan of Treatment Upcoming Encounters Date Type Department Care Team (Late Contact Info) Description 05/01/2025 9:[address] [facility] [address] [place] [address] Jovita Bill, TURRET LATHE TENDER [address] [place] [address] 05/01/2025 10:30 AM CDT Office Visit [facility] Breast Surgery Dami Leahy [address] [place] [address] Jovita Bill, [facility] [address] [place] [address] documented as of this encounter Visit Diagnoses Not on filedocumented in this encounter Care Teams Cane Flume Feeding Machine Operator Relationship Specialty Start Date End Date [facility], External Provider [address] [place] [address] PCP - General 02/24/20 documented as of this encounter
--- OUTSIDE RECORDS SUMMARY | 2024-11-13 16:24 | XMS_ITS | Clinical Summary ---
Author Organization [facility] Address [facility] [place] [address] Care Team Providers Care Compliance Project Manager Name Role Phone Antonino Petersen MD Primary Care Provider [phone] Source Comments [facility],non-owned Affiliates and Associated Physician Practices is amultiple site organization consisting of ambulatory clinics and [place] sitesin [place] and [place]. This disclosure is being madepursuant to the Care Everywhere program and may not contain all information available regarding this patient. Last updated 18.[facility] Allergies Active Allergy Reactions Criticality Noted Date [...] to complete this topic MENINGOCOCCAL (Group B) VACC INE SHARED DECISION-MAKING Aged Out No longer eligibl e based on patient's age to complete this topic MENINGOCOCCAL GROUPS A/C/Y/W VACCINE Aged Out No longer eligible b ased on patient's age to complete this topic Care Teams Compliance Project Manager Relationship Specialty Start Date End Date Antonino Petersen MD [address] [place] [address] PCP - General Family Medicine 01/11/17
--- OUTSIDE RECORDS SUMMARY | 2024-11-13 16:24 | XMS_ITS | Referral Summary ---
Author Organization [facility] Address [address] [place] [address] Phone Care Team Providers Care Automotive Glass Mechanic Name Role Phone Landry Downey NP Primary Care Provi geoffrey Chuckie Marquez MD Unavailable [phone] Serenity Fried MD Unavailable [phone] Encounters Date Type Department Care Team Description 10/02/2024 Telephone [facility] Accountable Care Organization [address] [place] [address] Raquel Putnam MA Unsuccessful Phone Call 1 ([facility]) from Last 3 Months Allergies Active [...] 09/10/2017 Assessment & Plan (09/10/2017 9:37 AM ELEVATOR STARTER): Hypertension is well controlled. . Continue current treatment regimen. Dietary sodium restriction. Regular aerobic exercise. Blood pressure will be reassessed at the next regular appointment. Hyperlipidemia 09/10/2017 Assessment & Plan (09/10/2017 9:38 AM ELEVATOR STARTER): Lipid abnormalities are controlled in past with statin. . Pharmacotherapy as ordered. Lipids will be reassessed in 3 months. Vitamin D deficiency 09/10/2017 Assessment & Plan (09/10/2017 9:38 AM ELEVATOR STARTER): Plan to check Vitamin D level. Abnormal cells in breast 09/10/2017 Assessment & Plan (09/10/2017 9:40 AM ELEVATOR STARTER): Currently following at [facility]. Alternating every 6 months with MRI vs mammogram. Currently on aromasin. Resolved Problems Problem Noted Date Diagnosed Date Resolved Date BMI 22.0-22.9, adult 09/10/2017 06/01/26 018 Assessment & Plan (09/10/2017 9:41 AM ELEVATOR STARTER): BMI normal. Weight has been stable. Aware [...] on file Insurance [employer] Care Teams Automotive Glass Mechanic Relationship Specialty Start Date End Date Landry Downey NP PCP - General Family Practice 01/30/18 Chuckie Marquez MD Referring Physician Hematology 01/30/18 [place] [id number] [address] [address] Consulting Physician General Surgery 01/30/18
== END 2024-11-13 16:21 | disposition home or self-care (01) ==
LOC: CHSLAB 16:21
PROVIDERS: Visit Provider Nurse Practitioner Family
DX: L03.113 Cellulitis of right upper limb (principal)
CPT/HCPCS: 87070; 87075; 87181; 87205